=== PATIENT | male | born 1960 | race Caucasian/White ===

== ENCOUNTER 2016-08-05 15:30 | Emergency (ER) | payer MEDICAID, OTHER ==
[~2016-08-05] VITALS: Ht 170.2 cm; Wt 93.2 kg
[2016-08-05 15:34] VITALS: Ht 170.2 cm; Wt 93.2 kg
[2016-08-05] MEDS ORDERED: morphine 4 MG/ML VIAL IV STA ×2 (16:06→16:29)
[2016-08-05] MEDS ORDERED: ONDANSETRON 4 MG INJ IV STA ×3 (16:06→18:35)
--- NOTE | 2016-08-05 16:18 | ERA ---
ER Documentation Chief Complaint Date/Time DATE: 08/05/16 TIME: 16:15 Chief Complaint htn dizzy and weak HPI Patient is a 56-year-old male who presents complaining of uncontrolled hypertension off and on for the last 1-2 months. He states he has left-sided neck discomfort associated with a whooshing sound in his left ear and a headache. He says it was much more intense today which is why he called the ambulance. He does have left upper and right upper extremity numbness and weakness which has also been going on for the last month. He says he has seen his primary care physician and has been told all of his symptoms are related to his hypertension. He has had a history of coronary artery disease in the past with 3 MIs but states he has not had chest pain. He denies also shortness of breath, coughing, congestion, rhinorrhea, sore throat, or fever. He says nothing seems to cause the symptoms to come and go, they just seem to come and go on their own. The remainder review systems are negative. ROS All systems reviewed and are negative except as per history of present illness. Medications Home Meds Reported Medications Sumatriptan Succinate* (Sumatriptan Succinate*) 50 Mg Tablet, 50 MG PO NEEDED Y for MIGRAINE HEADACHE, #9 TAB May repeat after 2 hours if needed; MAX 200 mg/24 hours 08/05/16 Fluticasone Propionate* (Fluticasone Propionate* Nasal) 50 Mcg/Star - 16 Gm Star.susp, 1 SPRAY NASAL BID, #1 BOTTLE TO EACH NOSTRIL 08/05/16 [place]-3 Acid Ethyl Esters (Lovaza) 1 Gm Capsule, 1 GM PO BID, CAP 08/05/16 Ibuprofen* (Ibuprofen*) 600 Mg Tablet, 600 MG PO Q6H Y for PAIN, TAB 08/05/16 Aspirin* (Aspirin* EC) 81 Mg Tablet.dr, 81 MG PO DAILY, TAB 08/05/16 Pravastatin Sodium* (Pravastatin Sodium*) 20 Mg Tablet, 20 MG PO HS, TAB 08/05/16 Levothyroxine Sodium* (Levothyroxine Sodium*) 25 Mcg Tablet, 25 MCG PO BEFORE BREAKFAST, #30 TAB 08/05/16 Acetaminophen (Mapap) 500 Mg Capsule, 500 MG PO Q6H Y for PAIN, CAP 08/05/16 Clopidogrel Bisulfate* (Clopidogrel Bisulfate*) 75 Mg Tablet, 75 MG PO DAILY, # 30 TAB 08/05/16 Lorazepam* (Lorazepam*) 1 Mg Tablet, 1 MG PO HS Y for ANXIETY, #30 TAB 08/05/16 Carvedilol* (Carvedilol*) 3.125 Mg Tablet, 3.125 MG PO DAILY, #30 TAB 08/05/16 Amlodipine-Benazepril (Amlodipine-Benazepril) 5-40 Mg Capsule, 1 TAB PO BID, # 60 TAB 08/05/16 Allergies Allergies: Coded Allergies: No Known Drug Allergy (Verified Allergy, Mild, 08/05/16) PMhx/Soc History of Surgery: Yes (angioplasty with stent) Anesthesia Reaction: No Hx Neurological Disorder: No Hx Respiratory Disorders: No Hx Cardiac Disorders: Yes (htn, mi) Hx Psychiatric Problems: No Hx Miscellaneous Medical Probl: No Hx Alcohol Use: No Hx Substance Use: No Hx Tobacco Use: No Smoking Status: Never smoker FmHx Family History: coronary disease Physical Exam Vitals Vital Signs Date Time Temp Pulse Resp B/P Pulse Ox O2 Delivery O2 Flow Rate FiO2 08/05/16 18:20 98.6 80 17 164/104 97 Room Air 08/05/16 17:58 98.6 88 17 155/107 97 Room Air 08/05/16 15:58 98.6 88 17 174/115 97 Room Air 08/05/16 15:34 99.0 81 20 173/111 95 Physical Exam Const: [] Well-developed well-nourished male sitting on the bed no acute distress Head: Atraumatic normocephalic Eyes: Normal Conjunctiva, pupils equally round and reactive to light, extraocular motions are intact ENT: Normal External Ears, Nose and Mouth. Neck: Full range of motion..~ No meningismus, no carotid bruits are auscultated Resp: Clear to auscultation bilaterally Cardio: Regular rate and rhythm, no murmurs Abd: Soft, non tender, non distended. Normal bowel sounds Skin: No petechiae or rashes Back: No midline or flank tenderness Ext: No cyanosis, or edema Neur: Awake and alert, oriented 3, GCS equals 15, cranial nerves II through XII are intact, finger to nose is intact without any focal findings, strength is 5 out of 5 in both upper and lower extremities, gait is steady Psych: Normal Mood and Affect Result Diagram: 08/05/16 1600 08/05/16 1820 Results 24 hrs Laboratory Tests Test 08/05/16 16:00 08/05/16 18:20 Activated Partial Thromboplast Time 28.4Sec Basophils # 0.010^3/ul Basophils % 0.5% Eosinophils # 0.110^3/ul Eosinophils % 0.8% Hematocrit 44.8% Hemoglobin 15.4g/dl INR International Normalized Ratio 0.89 Lymphocytes # 1.210^3/ul Lymphocytes % 16.3% Mean Corpuscular Hemoglobin 29.6pg Mean Corpuscular Hemoglobin Concent 34.4g/dl Mean Corpuscular Volume 86.0fl Mean Platelet Volume 11.1fl Monocytes # 0.510^3/ul Monocytes % 6.1% Neutrophils # 5.610^3/ul Neutrophils % 75.9% Nucleated Red Blood Cells # 0.010^3/ul Nucleated Red Blood Cells % 0.0/100WBC Platelet Count 42446^3/UL Prothrombin Time 12.0Sec Prothrombin Time Ratio 0.9 Red Blood Count 5.2110^6/ul Red Cell Distribution Width 12.5% White Blood Count 7.410^3/ul Alanine Aminotransferase (ALT/SGPT) 23IU/L Albumin 4.4g/dl Albumin/Globulin Ratio 1.41 Alkaline Phosphatase 88IU/L Anion Gap 18 Aspartate Amino Transf (AST/SGOT) 22IU/L Blood Urea Nitrogen 12mg/dl Calcium Level 9.4mg/dl Carbon Dioxide Level 25mmol/L Chloride Level 105mmol/L Creatinine 0.88mg/dl Direct Bilirubin 0.00mg/dl Globulin 3.10g/dl Glucose Level 104mg/dl Indirect Bilirubin 0.8mg/dl Potassium Level 4.1mmol/L Sodium Level 144mmol/L Total Bilirubin 0.8mg/dl Total Protein 7.5g/dl Troponin I < 0.010ng/ml Current Medications Medications (Trade) Dose Ordered Sig/Saeid Route PRN Reason Start Time Stop Time Status Last Admin Dose Admin Morphine Sulfate (morphine) 4 mg ONCE STAT IV 08/05/16 16:06 08/05/16 16:10 DC Ondansetron HCl (Zofran Inj) 4 mg ONCE STAT IV 08/05/16 16:06 08/05/16 16:10 DC 08/05/16 16:49 Labetalol HCl 20 mg 20 mg ONCE ONCE IV 08/05/16 16:30 08/05/16 16:31 DC 08/05/16 16:49 Sodium Chloride (NS) 1,000 ml @ 1,000 mls/hr Q1H STAT IV 08/05/16 16:29 08/05/16 16:34 DC Azithromycin 500 mg 500 mg ONCE STAT IV 08/05/16 16:29 08/05/16 16:34 DC Ceftriaxone Sodium (Rocephin) 50 ml @ 100 mls/hr ONCE STAT IVPB 08/05/16 16:29 08/05/16 16:34 DC Morphine Sulfate (morphine) 4 mg ONCE STAT IV 08/05/16 16:29 08/05/16 16:34 DC Ondansetron HCl (Zofran Inj) 4 mg ONCE STAT IV 08/05/16 16:29 08/05/16 16:34 DC Hydralazine HCl (Apresoline) 10 mg ONCE ONCE IV 08/05/16 18:30 08/05/16 18:31 DC 08/05/16 18:15 Hydralazine HCl (Apresoline) 10 mg ONCE ONCE IV 08/05/16 18:30 08/05/16 18:31 DC 08/05/16 18:32 Lorazepam (Ativan) 1 mg ONCE ONCE IV 08/05/16 19:00 08/05/16 19:01 DC 08/05/16 18:58 Ondansetron HCl (Zofran Inj) 4 mg ONCE STAT IV 08/05/16 18:35 08/05/16 18:36 DC 08/05/16 18:58 Acetaminophen/ Hydrocodone Bitart ([place] (5/325)) 2 tab ONCE ONCE PO 08/05/16 19:00 08/05/16 19:01 DC 08/05/16 19:01 Procedures/MDM Differential includes but is not limited to uncontrolled hypertension, unstable angina, carotid insufficiency, atypical TIA, inner ear disorder, musculoskeletal neck pain EKG: Rate/Rhythm: Normal Sinus Rhythm with a rate of 80 bpm QRS, ST, T-waves: No changes consistent w/ acute ischemia Impression: No evidence of ischemia or arrhythmia Chest x-ray does not reveal any evidence of acute cardiopulmonary process CT the head does not reveal any evidence of acute intracranial bleed or ischemic changes Doppler of the carotids do not reveal any evidence of significant stenosis per the radiologist At this time the patient feels improved. I do not have a cause for his left- sided neck pain or this sound that he hears in his ear. He does appear clinically stable for discharge and follow-up as an outpatient however. Departure Diagnosis: Primary Impression: Hypertension Qualified Code: I10 - Essential hypertension Additional Impressions: Headache Qualified Code: G44.52 - New daily persistent headache Tinnitus of left ear Neck pain on left side Condition: Good Patient Instructions: High Blood Pressure (Hypertension), Neck Pain, No Trauma , Self-Care for Headaches, Tinnitus (Ringing in the Ears) Referrals: AURE WALDROP MD, CHAD M. MD Additional Instructions: Please schedule an appointment with Dr. Waldrop for your left ear ringing. Also please schedule an appointment with your primary care physician for your uncontrolled hypertension. Return to the emergency department for any new or worsening symptoms. CAROL GLASS Aug 05, 2016 16:18
[2016-08-05] MEDS ORDERED: AZITHROMYCIN 500MG/250 ML NS IVPB IV STA (16:29)
[2016-08-05] MEDS ORDERED: SOD CHLORIDE 0.9% 1,000 ML IV STA (16:29)
[2016-08-05] MEDS ORDERED: CEFTRIAXONE 1 GM/50 ML (PMX) 50 ML IVPB STA (16:29)
[2016-08-05] MEDS ORDERED: LABETALOL HCL 20MG INJ IV ONE (16:30)
[2016-08-05] MEDS ORDERED: AMLO1CAP14 PO (16:36)
[2016-08-05] MEDS ORDERED: CARV3.1260 PO (16:37)
[2016-08-05] MEDS ORDERED: LORA1TAB PO (16:39)
[2016-08-05] MEDS ORDERED: CLOP75TA4 PO (16:40)
[2016-08-05] MEDS ORDERED: LEVO25TA53 PO (16:42)
[2016-08-05] MEDS ORDERED: ACET500C3 PO (16:42)
[2016-08-05] MEDS ORDERED: ASPI-664 PO (16:43)
[2016-08-05] MEDS ORDERED: PRAV20TA63 PO (16:43)
[2016-08-05] MEDS ORDERED: IBUP-1542 PO (16:44)
[2016-08-05] MEDS ORDERED: OMEG1CAP2 PO (16:45)
[2016-08-05] MEDS ORDERED: FLUT16SP17 NASAL (16:45)
[2016-08-05] MEDS ORDERED: SUMA50TA3 PO (16:47)
[2016-08-05 16:53] LABS: ADD SCAN DIFF NO
[2016-08-05 16:58] LABS: BASOPHILS % 0.5 % (0.0-2.0); EOSINOPHILS # 0.1 10^3/ul (0.0-0.5); EOSINOPHILS % 0.8 % (0.0-7.0); HEMATOCRIT 44.8 % (42.0-52.0); HEMOGLOBIN 15.4 g/dl (14.0-18.0); LYMPHOCYTES # 1.2 10^3/ul (0.8-2.9); LYMPHOCYTES % 16.3 % (15.0-51.0); MEAN CORPUSCULAR HEMOGLOBIN 29.6 pg (29.0-33.0); MEAN CORPUSCULAR HGB CONC 34.4 g/dl (32.0-37.0); MEAN PLATELET VOLUME 11.1 fl (7.4-10.4); MONOCYTE # 0.5 10^3/ul (0.3-0.9); MONOCYTES % 6.1 % (0.0-11.0); NEUTROPHIL # 5.6 10^3/ul (1.6-7.5); NEUTROPHILS % 75.9 % (39.0-77.0); PLATELET COUNT 252 10^3/UL (140-415); RED BLOOD COUNT 5.21 10^6/ul (4.70-6.10); RED CELL DISTRIBUTION WIDTH 12.5 % (11.5-14.5); WHITE BLOOD COUNT 7.4 10^3/ul (4.8-10.8)
--- NOTE | 2016-08-05 17:11 | RADRPT ---
PROCEDURE: US Carotids. CLINICAL INDICATION: bruit , left neck pain/ hears sound whooshing in left ear TECHNIQUE: Multiple sonographic of the carotid bifurcation region and vertebral arteries were obta ined utilizing craven scale, duplex and color-flow imaging. The images were reviewed on a PACS worksta tion. COMPARISON: No prior studies are available for comparison. FINDINGS: Evaluation of the right carotid bifurcation region reveals no significant calcific atherosclerotic d isease. Evaluation of the left carotid bifurcation region reveals no significant calcific atherosclerotic di sease. There is antegrade flow within the vertebral arteries bilaterally. RIGHT CAROTID MEASUREMENTS: Common Carotid Peglqr92.9 (cm/sec) Internal Carotid Artery - axyqvjkz73.1 (cm/sec) Internal Carotid Artery - mid36.7 (cm/sec) Internal Carotid Artery - dxmicr94.7 (cm/sec) Internal Carotid/Common Carotid0.66 LEFT CAROTID MEASUREMENTS: Common Carotid Mzlxbn96.7 (cm/sec) Internal Carotid Artery - zaodwbjt12.5 (cm/sec) Internal Carotid Artery - mid47.2 (cm/sec) Internal Carotid Artery - apzyso56 (cm/sec) Internal Carotid/Common Carotid0.79 RPTAT: AA IMPRESSION: No evidence for hemodynamically significant stenosis in the bilateral internal carotid arteries - va lidated velocity measurements with angiographic measurements, velocity criteria are extrapolated fro m diameter data as defined by the Society of Radiologists in Ultrasound Consensus Conference Radiolo gy 2003; 229;340-346. This study does indirectly reference the measurement of the distal ICA diamet er as the denominator for stenosis measurement. Normal antegrade flow in the vertebral arteries bilaterally. .Blayne Casas MD, MD Date Time Electronically viewed and signed by .Blayne Casas MD, MD on 08/05/2016 17:09 .S/
--- NOTE | 2016-08-05 17:37 | RADRPT ---
PROCEDURE: XR Chest. CLINICAL INDICATION: Chest pain. TECHNIQUE: Single frontal view of the chest was obtained. COMPARISON: 10/21/2007. FINDINGS: The cardiac silhouette is mildly enlarged. There is calcification and slight unfolding of the thora cic aorta. Pulmonary vasculature appears normal. There is some subsegmental atelectasis at the lef t lung base. No confluent airspace process seen. Costophrenic angles are well defined. Osseous st ructures appear intact. IMPRESSION: 1. Subsegmental atelectasis at the left lung base. 2. Aortic atherosclerosis. 3. No confluent airspace process identified. RPTAT: [facility] Physician Hanna Date Time Electronically viewed and signed by Moo Scott Physician on 08/05/2016 17:36 /
--- NOTE | 2016-08-05 17:43 | RADRPT ---
PROCEDURE: CT Brain without contrast. CLINICAL INDICATION: Headaches TECHNIQUE: A CT of the brain was performed on a [employer] 64-slice CT scanner utilizing axial imaging from the skull base through the vertex without IV contrast. Multiplanar reformatted images were made. Images were reviewed on a PACS workstation. The CTDIvol is 47.50 mGy and the DLP is 905 .60 mGycm. One of the following 3 dose reduction techniques were used: Automated exposure control; adjustment of the mA and/or kV according to patient size; or use of iterative reconstruction technique. COMPARISON: 10/21/[address] FINDINGS: There is no intracranial hemorrhage, mass effect, or midline shift. No extra-axial fluid collection is seen. The ventricles and sulci are age appropriate. Mild diffuse volume loss is present. Subtl e decreased attenuation is present in the bilateral subcortical white matter, bilateral centrum semi ovale, bilateral periventricular white matter chronic microvascular ischemic disease. mild vascular calcifications are present of the bilateral intracranial internal carotid arteries. The visualized scalp and calvarium are normal. The visualized orbits are symmetric and normal. The bilateral paranasal sinuses, mastoid air cells and middle ear cavities are clear. IMPRESSION: 1. No evidence of acute intracranial hemorrhage, infarcts or acute intracranial pathology. 2. Mild chronic microvascular ischemic disease and mild diffuse volume loss. 3. Mild atherosclerotic vascular disease. RPTAT: HDC .Ruchi Shelton MD, Date Time Electronically viewed and signed by .Ruchi Shelton MD, MD on 08/05/2016 17:43 .C/
[2016-08-05 17:58] LABS: INR 0.89; PARTIAL THROMBOPLASTIN TIME 28.4 Sec (25.0-35.0); PT RATIO 0.9
[2016-08-05] MEDS ORDERED: hydrALAzine 20 MG INJ IV ONE ×2 (18:30)
[2016-08-05 18:49] LABS: ALBUMIN 4.4 g/dl (3.3-4.9); CHLORIDE 105 mmol/L (97-110)
[2016-08-05 18:50] LABS: POTASSIUM 4.1 mmol/L (3.5-5.1); SODIUM 144 mmol/L (135-144)
[2016-08-05 18:52] LABS: ALANINE AMINOTRANSFERASE 23 IU/L (13-69); ALBUMIN/GLOBULIN RATIO 1.41; ALKALINE PHOSPHATASE 88 IU/L (42-121); ANION GAP 18 (8-16); ASPARTATE AMINO TRANSFERASE 22 IU/L (15-46); BILIRUBIN,INDIRECT 0.8 mg/dl (0-1.1); BILIRUBIN,TOTAL 0.8 mg/dl (0.2-1.3); BLOOD UREA NITROGEN 12 mg/dl (7-20); CARBON DIOXIDE 25 mmol/L (21-31); CREATININE 0.88 mg/dl (0.61-1.24); GLUCOSE 104 mg/dl (70-220); TOTAL PROTEIN 7.5 g/dl (6.1-8.1)
[2016-08-05 18:53] LABS: CALCIUM 9.4 mg/dl (8.4-10.2)
[2016-08-05] MEDS ORDERED: LORAZEPAM 2 MG INJ IV ONE (19:00)
[2016-08-05] MEDS ORDERED: HYDROCODONE/APAP (5/325) TAB PO ONE (19:00)
[2016-08-05 19:10] LABS: TROPONIN-I < 0.010 ng/ml (0.00-0.12)
[2016-08-05] MEDS ORDERED: HYDR-3671 PO (20:04)
[2016-08-05] MEDS ORDERED: CYCL-319 PO (20:04)
[2016-08-05] MEDS ORDERED: TRAM50TA2 PO (20:05)
[2016-08-05] MEDS ORDERED: ONDA4TAB8 PO (20:06)
[2016-08-05 20:25] VITALS: BP 142/89; PULSE 93; RESP 17; TEMP 98.6
== END 2016-08-05 20:25 | disposition home or self-care (01) ==
LOC: E/R 15:30
DX: I10 Essential (primary) hypertension (principal); G44.52 New daily persistent headache (NDPH); H93.12 Tinnitus, left ear; M54.2 Cervicalgia; R07.9 Chest pain, unspecified; Z98.61 Coronary angioplasty status; Z79.82 Long term (current) use of aspirin
CPT/HCPCS: 36415; 70450; 71010; 80053; 84484; 85025; 85610; 85730; 93880; 96374; 96375; 96376; J0360; J2060; J2405; Z7502; Z7610; 93005; J2270; J7030

== ENCOUNTER 2018-04-14 16:03 | Inpatient (IN) | END 2018-04-15 17:15 | disposition home or self-care (01) | DRG 305 ==

== ENCOUNTER 2018-05-10 17:34 | Observation (INO) | END 2018-05-12 12:27 | disposition home or self-care (01) ==

== ENCOUNTER 2019-01-08 02:57 | Emergency (ER) | payer OTHER ==
[~2019-01-08] VITALS: Ht 177.8 cm; Wt 98.0 kg
[~2019-01-08 02:57] MED LIST: AMLO-145 PO; ASPI-817 PO; BENA40TA56 PO; CARV6.2579 PO; CLON-379 PO; CYCL10TA7 PO; GABA300C16 PO; HYDR-3672 PO; IBUP-1542 PO; LANS30CA PO; LEVO75TA5 PO; LORA1TAB PO; METF-849 PO; OMEG-101 PO; PARO-37 PO; PRAV40TA76 PO; SERT50TA6 PO; SUMA50TA3 PO; TRAM50TA2 PO
[2019-01-08 02:58] VITALS: Ht 177.8 cm; Wt 98.0 kg
--- NOTE | 2019-01-08 05:42 | ERD ---
ER Documentation Chief Complaint Chief Complaint EPIGASTRIC PAIN ON/OFF 2WKS; HX OF STENTS HPI This is a 4-year-old male comes with epigastric and lower chest pain for the past 2 weeks. Patient has history of stenting last done 4 years ago. Pain is mild to moderate intensity and is accompanied by diaphoresis. No shortness of breath. Mild nausea but no vomiting. No fevers or chills. No other current complaints. Patient's epigastric pain is radiated up his chest wall. ROS All systems reviewed and are negative except as per history of present illness. Medications Home Meds Active Scripts Paroxetine Hcl* (Paroxetine*) 20 Mg Tablet, 20 MG PO DAILY for 30 Days, #30 TAB Prov:MANPREET MARCELINO MD 05/12/18 Carvedilol* (Carvedilol*) 6.25 Mg Tablet, 6.25 MG PO BID for 30 Days, #60 TAB Prov:MANPREET MARCELINO MD 05/12/18 Benazepril Hcl* (Benazepril Hcl*) 40 Mg Tablet, 40 MG PO DAILY for 30 Days, #30 TAB Prov:MANPREET MARCELINO MD 04/15/18 Hydralazine Hcl* (Apresoline*) 50 Mg Tab, 50 MG PO BID for 30 Days, #60 TAB Prov:MANPREET MARCELINO MD 04/15/18 Amlodipine Besylate* (Amlodipine Besylate*) 5 Mg Tablet, 5 MG PO BID for 30 Days, #60 TAB Prov:MANPREET MARCELINO MD 04/15/18 Reported Medications Metformin* (Glucophage*) 500 Mg Tab, 500 MG PO DAILY for 30 Days, #30 01/08/19 Ibuprofen* (Ibuprofen*) 600 Mg Tablet, 600 MG PO DAILY 01/08/19 [place]-3 Acid Ethyl Esters ([place]-3 Acid Ethyl Esters) 1 Gm Capsule, 1 MG PO DAILY for 30 Days, #120 01/08/19 Sertraline Hcl* (Sertraline Hcl*) 50 Mg Tablet, 50 MG PO DAILY for 30 Days, #30 01/08/19 Lansoprazole* (Lansoprazole*) 30 Mg Capsule.dr, 30 MG PO DAILY for 30 Days, #30 01/08/19 Tramadol HCl (Tramadol HCl) 50 Mg Tablet, 50 MG PO DAILY 01/08/19 Sumatriptan Succinate* (Sumatriptan Succinate*) 50 Mg Tablet, 50 MG PO DAILY for 30 Days 01/08/19 Gabapentin* (Gabapentin*) 300 Mg Capsule, 300 MG PO DAILY for 30 Days, #30 01/08/19 Cyclobenzaprine Hcl* (Cyclobenzaprine Hcl*) 10 Mg Tablet, 10 MG PO BID for 30 Days, #60 01/08/19 Lorazepam* (Lorazepam*) 1 Mg Tablet, 1 MG PO DAILY for 30 Days, #30 01/08/19 Pravastatin Sodium* (Pravastatin Sodium*) 40 Mg Tablet, 40 MG PO HS, TAB 05/10/18 Levothyroxine Sodium* (Levothyroxine Sodium*) 75 Mcg Tablet, 75 MCG PO BEFORE BREAKFAST, #30 TAB 05/10/18 Aspirin* (Aspirin* EC) 81 Mg Tablet.dr, 81 MG PO DAILY, TAB 08/05/16 Discontinued Reported Medications Clonidine Hcl* (Clonidine Hcl*) 0.1 Mg Tab, 0.1 MG PO DAILY PRN for IF SBP>180, TAB 05/10/18 Allergies Allergies: Coded Allergies: No Known Drug Allergy (Verified Allergy, Mild, 05/10/18) PMhx/Soc History of Surgery: Yes (Appendectomy) Anesthesia Reaction: No Hx Neurological Disorder: No Hx Respiratory Disorders: No Hx Cardiac Disorders: Yes (CAD, Stent 09, HTN) Hx Psychiatric Problems: No Hx Miscellaneous Medical Probl: Yes (HYPOTHYROID, APPENDECTOMY) Hx Alcohol Use: No Hx Substance Use: No Hx Tobacco Use: No Smoking Status: Never smoker Physical Exam Vitals Vital Signs Date Temp Pulse Resp B/P (MAP) Pulse Ox O2 O2 Flow FiO2 Time Delivery Rate 01/08/19 Nasal 03:50 Cannula 01/08/19 98.1 84 19 148/89 98 Room Air 03:50 (108) 01/08/19 98.7 84 19 158/103 98 02:58 (121) Physical Exam Const: No acute distress Head: Atraumatic Eyes: Normal Conjunctiva ENT: Normal External Ears, Nose and Mouth. Neck: Full range of motion. No meningismus. Resp: Clear to auscultation bilaterally Cardio: Regular rate and rhythm, no murmurs Abd: Soft, non tender, non distended. Normal bowel sounds Skin: No petechiae or rashes Back: No midline or flank tenderness Ext: No cyanosis, or edema Neur: Awake and alert Psych: Normal Mood and Affect Result Diagram: 01/08/19 0349 01/08/19 0349 Results 24 hrs Laboratory Tests Test 01/08/19 03:49 White Blood Count 6.4 10^3/ul Red Blood Count 5.26 10^6/ul Hemoglobin 15.3 g/dl Hematocrit 45.6 % Mean Corpuscular Volume 86.7 fl Mean Corpuscular Hemoglobin 29.1 pg Mean Corpuscular Hemoglobin Concent 33.6 g/dl Red Cell Distribution Width 13.2 % Platelet Count 230 10^3/UL Mean Platelet Volume 10.3 fl Immature Granulocytes % 0.300 % Neutrophils % 63.5 % Lymphocytes % 21.0 % Monocytes % 12.2 % Eosinophils % 2.4 % Basophils % 0.6 % Nucleated Red Blood Cells % 0.0 /100WBC Immature Granulocytes # 0.020 10^3/ul Neutrophils # 4.1 10^3/ul Lymphocytes # 1.3 10^3/ul Monocytes # 0.8 10^3/ul Eosinophils # 0.2 10^3/ul Basophils # 0.0 10^3/ul Nucleated Red Blood Cells # 0.0 10^3/ul Sodium Level 142 mmol/L Potassium Level 3.6 mmol/L Chloride Level 109 mmol/L Carbon Dioxide Level 24 mmol/L Anion Gap 9 Blood Urea Nitrogen 18 mg/dl Creatinine 0.98 mg/dl Est Glomerular Filtrat Rate mL/min > 60 mL/min Glucose Level 115 mg/dl Calcium Level 9.2 mg/dl Total Bilirubin 0.8 mg/dl Direct Bilirubin 0.00 mg/dl Indirect Bilirubin 0.8 mg/dl Aspartate Amino Transf (AST/SGOT) 21 IU/L Alanine Aminotransferase (ALT/SGPT) 21 IU/L Alkaline Phosphatase 61 IU/L Troponin I < 0.012 ng/ml B-Type Natriuretic Peptide 113 PG/ML Total Protein 7.4 g/dl Albumin 4.2 g/dl Globulin 3.20 g/dl Albumin/Globulin Ratio 1.31 Lipase 148 U/L Procedures/MDM EKG: Rate/Rhythm: [Normal Sinus Rhythm] QRS, ST, T-waves: [No changes consistent w/ acute ischemia] Impression: [No evidence of ischemia or arrhythmia] Chest X-ray 1V Interpreted by me: Soft Tissue: No acute abnormalities Bones: No acute abnormalities Mediastinum/Cardiac Silhouette/Lungs: [No acute abnormalities] Patient's symptoms are concerning for cardiac cause will require inpatient workup and continuous monitoring. Further w/u for ischemia, arrhythmia, PE or dissection will be deferred to the inpatient team. Accepting Care Team: Current data and ongoing care discussed. Time: 545 Primary Provider: TIM hospitalist Consulting: Deferred to inpatient Outstanding Data: none Departure Diagnosis: Primary Impression: Chest pain Chest pain type: unspecified Qualified Codes: R07.9 - Chest pain, unspecified Condition: Serious CASSANDRA GRIGSBY Jan 08, 2019 05:42
[2019-01-08] MEDS ORDERED: ASPIRIN 81 MG TAB PO STA (06:44)
[2019-01-08] MEDS ORDERED: NITROGLYCERIN 2% 1 GM OINT PKT TD STA (06:44)
[2019-01-08] MEDS ORDERED: NITROGLYCERIN (SL) 0.4 MG TAB SL PRN (07:00)
[2019-01-08] MEDS ORDERED: ACETAMINOPHEN 325 MG TAB PO PRN (07:00)
[2019-01-08] MEDS ORDERED: ONDANSETRON 4 MG INJ IV PRN ×2 (07:00→07:30)
[2019-01-08] MEDS ORDERED: MINOXIDIL 2.5 MG TAB PO PRN (07:30)
[2019-01-08] MEDS ORDERED: morphine 4 MG/ML VIAL IV PRN (07:30)
[2019-01-08] MEDS ORDERED: metFORMIN 500 MG TAB PO SCH (08:00)
[2019-01-08] MEDS ORDERED: INSULIN ASPART [NOVOLOG] 3 ML PEN SC SCH (08:00)
[2019-01-08] MEDS ORDERED: PANTOPRAZOLE (EC) 40 MG TAB PO SCH (08:00)
--- NOTE | 2019-01-08 08:55 | PDOCDIS ---
Discharge Instructions CONDITION [id number] Patient Condition: [id number] Stable HOME CARE INSTRUCTIONS: [id number] Diet Instructions: [id number] [id number] Activity Restrictions: [id number] No Restrictions FOLLOW UP/APPOINTMENTS Follow-up Plan pcp 1 week PAULINO SUTHERLAND MD Jan 08, 2019 08:55
[2019-01-08] MEDS ORDERED: SERTRALINE 50 MG TAB PO SCH (09:00)
[2019-01-08] MEDS ORDERED: LORAZEPAM 1 MG TAB PO SCH (09:00)
[2019-01-08] MEDS ORDERED: ASPIRIN (EC) 81 MG TAB PO SCH (09:00)
[2019-01-08] MEDS ORDERED: PAROXETINE 20 MG TAB PO SCH (09:00)
[2019-01-08] MEDS ORDERED: CYCLOBENZAPRINE 10 MG TAB PO SCH (09:00)
[2019-01-08] MEDS ORDERED: BENAZEPRIL 40 MG TAB PO SCH (09:00)
[2019-01-08] MEDS ORDERED: AMLODIPINE 5 MG TAB PO SCH (09:00)
[2019-01-08] MEDS ORDERED: GABAPENTIN 300 MG CAP PO SCH (09:00)
[2019-01-08] MEDS ORDERED: FISH OIL 1,000 MG CAP PO SCH (09:00)
[2019-01-08 11:50] VITALS: BP 136/101; PULSE 87; RESP 16
--- NOTE | 2019-01-08 13:50 | QN ---
Documentation Comment Observation Note: Time: 4 hours Family Hx: Negative for diabetes Evaluation: Multiple exams showed improving symptoms and no evidence of clinical decompensation. LLUVIA ELLIOTT MD Jan 08, 2019 13:50
--- NOTE | 2019-01-08 14:44 | HP ---
DATE OF ADMISSION: 01/08/2019 CHIEF COMPLAINT: Acute epigastric pain. HISTORY OF PRESENT ILLNESS: A 58-year-old male with known coronary artery disease and hypertension, presented to emergency room with a complaint of epigastric pain radiating to his chest. The patient also reports a sour taste in his throat and mouth. He denies any exertional symptoms. No shortness of breath. No nausea or vomiting. He did have some mild diaphoresis. The patient has been complian t with his medical therapy. Initial evaluation in the emergency room was unremarkable. The Initial troponin was normal. The EKG did not show any acute ST or T-wave changes. The patient was hospitalized in April of 2019. He un derwent ischemic workup at that time and this was negative. PAST MEDICAL HISTORY: 1. Coronary artery disease, status post PCI and stent placement in the past. 2. Hypertension. 3. Type 2 diabetes mellitus. 4. Chronic depression. 5. Hyperlipidemia. 6. Hypothyroidism. MEDICATIONS PRIOR TO ADMISSION: 1. Paroxetine within 20 mg daily. 2. Coreg 6.25 mg b.i.d. 3. Benazepril 40 mg daily. 4. Hydralazine 50 mg b.i.d. 5. Norvasc 5 mg b.i.d. 6. Metformin 500 mg daily. 7. Ibuprofen seen daily. 8. Sertraline 50 mg daily. 9. Prevacid 30 mg daily. 10. Tramadol as needed. 11. Gabapentin 300 mg daily. 12. Lorazepam p.r.n. rosuvastatin 40 mg daily. 13. Levothyroxine 75 mcg daily. 14. Aspirin 81 mg daily. PAST SURGICAL HISTORY: Status post appendectomy. SOCIAL HISTORY: The patient lives at home. He has a remote history of tobacco use and quit more kacie n 10 years prior to admission. PHYSICAL EXAMINATION: GENERAL: Well-developed, well-nourished male who is in no apparent distress. VITAL SIGNS: Stable. He is afebrile. HEENT: Extraocular muscles intact. Pupils equal and reactive to light bilaterally. Sclerae are ani cteric. Oropharynx is clear and moist. NECK: Supple, no JVD, no carotid bruits. LUNGS: Clear to auscultation bilaterally. CARDIAC: Regular rate and rhythm. No murmurs or gallops. ABDOMEN: Soft, nontender, nondistended, normoactive bowel sounds. EXTREMITIES: No clubbing, cyanosis, or edema. NEUROLOGICAL: Grossly nonfocal. ASSESSMENT: 1. This is a 66-year-old male presenting with epigastric pain radiating to his chest area. The pres entation is consistent with gastroesophageal reflux disease. The patient has associated the sour tas te in his throat and mouth consistent with acid reflux. 2. Coronary artery disease, status post PCI and stent placement in the past. The patient had a nega tive ischemic workup in April of 2018. 3. Hypertension. 4. Type 2 diabetes mellitus. 5. Hyperlipidemia. 6. Hypothyroidism. 7. Chronic depression. PLAN: 1. Place in tele observation and repeat serum troponin. 2. Get a 2D echo. 3. Resume home medications. 4. Cardiology consultation was requested. Dictated By: PAULINO SUAREZ/MEAGHAN Conf#: [id number] DID#: [id number] CC: DURAN CHAWLA DO;*EndCC*
--- NOTE | 2019-01-08 16:22 | RADRPT ---
Echocardiogram Report Patient Name: MARIIA ANDRADEPatient ID: [id number] : 1960 (58y 6m)Study Date: 01/08/2019 10:37:12 AM Gender: MAccession #: [id number] Tech: Jaz Barber [facility] Location: [facility] [place] Ref.Physician: BONIFACIO EMMANUEL Height(Cm): BSA: Weight(Kg): Quality: AdequateAccount #: [id number] Procedures: Echocardiographic Report: Transthoracic echocardiogram with complete 2D, M-Mode, and doppler examination. Indications: Chest Pain. Measurements: 2D/M Mode Doppler Measurement Value Normal Range Measurement Value Normal Range LVIDd 2D 4.6 [ 4.2 - 5.8 ] cm AV Peak Akira 1.2 [ 100.0 - 170.0 ] cm/sec LVIDs 2D 2.1 [ 2.5 - 4.0 ] cm AV Peak PG 6.0 [ 2.0 - 9.0 ] mmHg LVPWd 2D 1.0 [ 0.6 - 1.0 ] cm LVOT Peak Akira 1.0 [ 70.0 - 110.0 ] cm/sec IVSd 2D 1.1 [ 0.6 - 1.0 ] cm LVOT Peak PG 4.0 [ 2.0 - 6.0 ] mmHg AoR Diam 2D 3.4 [ 2.6 - 3.4 ] cm MV A Peak Akira 0.7 [ 100.0 - 120.0 ] cm/sec EDV 2D 98.3 [ 62.0 - 150.0 ] ml MV Decel Time 204 [ 104 - 258 ] msec ESV 2D 14.9 [ 21.0 - 61.0 ] ml Lat E` Akira 0.1 [ 10.0 - 15.0 ] cm/sec EF 2D 84.8 [ 52.0 - 72.0 ] percent Med E` Akira 0.1 cm/sec LA Dimen 2D 3.0 [ 3.0 - 4.0 ] cm Findings: Left Ventricle: Normal left ventricular systolic function. Normal left ventricular cavity size. Mild concentric left ventricular hypertrophy. Ejection fraction is visually estimated at 65 %. Tissue Doppler/Mitral Doppler indices are consistent with impaired relaxation (Stage I diastolic dysfunction). Right Ventricle: Normal right ventricular size. Normal right ventricular systolic function. Left Atrium: The left atrium is normal in size. Right Atrium: The right atrium is normal in size. Mitral Valve: Normal appearance and function of the mitral valve with trace physiologic regurgitation. Aortic Valve: Normal appearance of the aortic valve. No significant aortic stenosis or insufficiency. Tricuspid Valve: Normal appearance and function of the tricuspid valve with trace physiologic regurgitation. Pulmonic Valve: Normal pulmonic valve appearance. Pericardium: Normal pericardium with no significant pericardial effusion. Aorta: Normal aortic root. IVC: Normal size and normal respiratory collapse consistent with normal right atrial pressure. Conclusions: Normal left ventricular systolic function. Normal left ventricular cavity size. Mild concentric left ventricular hypertrophy. Ejection fraction is visually estimated at 65 %. Tissue Doppler/Mitral Doppler indices are consistent with impaired relaxation (Stage I diastolic dysfunction). Normal right ventricular size. Normal right ventricular systolic function. The left atrium is normal in size. The right atrium is normal in size. No significant valvular stenosis or regurgitation seen. Normal pericardium with no significant pericardial effusion. Electronically Signed By: Jhony Arreola 2019-01-08 16:21:41 PDT
[2019-01-08] MEDS ORDERED: ATORVASTATIN 10 MG TAB PO SCH (21:00)
[2019-01-09] MEDS ORDERED: LEVOTHYROXINE 75 MCG TAB PO SCH (07:00)
--- NOTE | 2019-01-11 05:38 | DS ---
DATE OF ADMISSION: 01/08/2019 DATE OF DISCHARGE: 01/08/2019 DISCHARGE DIAGNOSES: 1. A 58-year-old male with epigastric pain, most consistent with gastroesophageal reflux disease. 2. Coronary artery disease, status post PCI and stent placement in the past. 3. Hypertension. 4. Type 2 diabetes mellitus. 5. Hyperlipidemia. 6. Hypothyroidism. 7. Chronic depression. HOSPITAL COURSE: A 58-year-old male with known coronary artery disease and hypertension, presented t o emergency room with complaint of epigastric pain radiating to his chest area. The patient reported a sour taste in the mouth and throat. There were no exertional symptoms. He had no shortness of br eath, nausea or vomiting. Initial evaluation was unremarkable. Serial troponins were normal. There were no acute EKG changes. The patient was evaluated by Dr. Arreola. I ordered a 2D echo which showed normal LV systolic funct ion with ejection fraction of 65%. There were no valvular abnormalities. The patient was discharged home in a stable condition. He was asked to follow up with his PCP as outpatient. Dictated By: PAULINO SUAREZ/MEAGHAN Conf#: [id number] DID#: [id number] CC: DURAN ARREOLA DO;*EndCC*
== END 2019-01-08 13:36 | disposition left against medical advice (07) ==
LOC: E/R 02:57 → CANBEDREQ 19:49
DX: R07.9 Chest pain, unspecified (principal); E03.9 Hypothyroidism, unspecified; I25.10 Atherosclerotic heart disease of native coronary artery without angina pectoris; I10 Essential (primary) hypertension; Z79.82 Long term (current) use of aspirin
CPT/HCPCS: 71045; 80053; 83690; 83880; 84484; 85025; 93005; 93306; J1815; Z7610; 36415